=== PATIENT | female | born 1990 | race African-American/Black ===

== ENCOUNTER 2021-05-20 08:53 | Outpatient (CLI) | payer OTHER | END 2021-05-20 08:54 | disposition home or self-care (01) | LOC: CSHMRI 08:53 | PROVIDERS: ATTEND Nurse Practitioner Acute Care | DX: G43.709 Chronic migraine without aura, not intractable, without status migrainosus (principal); J32.9 Chronic sinusitis, unspecified | CPT/HCPCS: 70553 ==

== ENCOUNTER 2021-08-27 17:26 | Outpatient (CLI) | payer BC ==
[2021-08-27 18:09] LABS: Hemoglobin 12.9 g/dL (12.0-15.5); Mean Corpuscular HGB CONC 32.8 g/dL (32.0-36.0); Mean Corpuscular Hemoglobin 31.5 pg (27.0-33.0); Mean Corpuscular Volume 95.9 fl (81.6-98.3); Mean Platelet Volume 9.7 fl (7.4-10.4); Platelet Count 365 10x3/uL (150-450); RBC Distribution Width 11.9 % (11.5-14.5); White Blood Cell (WBC) Count 10.5 10x3/uL (3.5-10.5)
[2021-08-27 18:25] LABS: Anion Gap 15 mmol/L (10-20); BUN (Urea Nitrogen) 11 mg/dL (7.0-18.7); Calc. Creatinine Clearance 0 mL/min (70-130); Calcium 9.3 mg/dL (7.8-10.44); Carbon Dioxide 24 mmol/L (22-29); Chloride 101 mmol/L (98-107); Glucose 125 mg/dL (70-105); Potassium 3.9 mmol/L (3.5-5.1); Sodium 136 mmol/L (136-145)
== END 2021-08-27 17:27 | disposition home or self-care (01) ==
LOC: CSHLAB 17:26
PROVIDERS: ATTEND Orthopaedic Surgery
DX: Z01.812 Encounter for preprocedural laboratory examination (principal); S83.512A Sprain of anterior cruciate ligament of left knee, initial encounter; S83.412A Sprain of medial collateral ligament of left knee, initial encounter
CPT/HCPCS: 80048; 85027

== ENCOUNTER 2023-01-06 09:58 | Outpatient (CLI) | payer BC ==
[2023-01-06] MEDS ORDERED: Iopamidol 300 61% 100 ML VIAL FS ONE (10:23)
== END 2023-01-06 09:59 | disposition home or self-care (01) ==
LOC: CSHCT 09:58
PROVIDERS: ATTEND Physician Assistant Medical
DX: K20.0 Eosinophilic esophagitis (principal); R19.4 Change in bowel habit; K92.1 Melena; K63.9 Disease of intestine, unspecified
CPT/HCPCS: 74177; Q9967

== ENCOUNTER 2023-01-19 08:29 | Outpatient (CLI) | payer BC | END 2023-01-19 08:30 | disposition home or self-care (01) | LOC: CSHRAD 08:29 | PROVIDERS: ATTEND Physician Assistant Medical | DX: K56.1 Intussusception (principal) | CPT/HCPCS: 74250 ==

== ENCOUNTER 2023-02-21 10:06 | Day surgery (SDC) | payer BC ==
[2023-02-21] MEDS ORDERED: Lidocaine 2% PF 5 ML VIAL ONE (11:55)
[2023-02-21] MEDS ORDERED: Midazolam HCl 2 mg/2 ml Vial ONE (11:55)
[2023-02-21] MEDS ORDERED: Fentanyl 250 MCG/5 ML VIAL ONE (11:55)
[2023-02-21] MEDS ORDERED: Rocuronium Bromide 10 MG/ML (10ML VIAL) ONE (11:55)
[2023-02-21] MEDS ORDERED: PROPOFOL 40 ML ONE (11:55)
[2023-02-21] MEDS ORDERED: Glycopyrrolate 0.2 MG/ML 5 ML SYRINGE ONE (11:55)
[2023-02-21] MEDS ORDERED: Bupivacaine 0.25% HCL 30 ML VIAL ONE (12:13)
[2023-02-21] MEDS ORDERED: Lidocaine 2% 6 ML (Jelly) SYR ONE (12:13)
[2023-02-21] MEDS ORDERED: EPINEPHrine 1 MG/ML VIAL ONE (12:13)
[2023-02-21] MEDS ORDERED: Lidocaine 2% 10 ML INJ ONE (12:13)
[2023-02-21] MEDS ORDERED: CEFAZOLIN 2 GM VIAL ONE (12:30)
[2023-02-21] MEDS ORDERED: Promethazine HCl 25 MG/ML VIAL IM/IV PRN (13:30)
[2023-02-21] MEDS ORDERED: Ondansetron HCl/PF 4 MG/2 ML Vial IVP PRN (13:30)
[2023-02-21] MEDS ORDERED: Meperidine HCl/PF 25 MG/ML VIAL IV PRN (13:30)
== END 2023-02-21 14:15 | disposition home or self-care (01) ==
LOC: CSHSDC 10:06
PROVIDERS: ATTEND Surgery
PROC: 0DJD8ZZ Inspection of Lower Intestinal Tract, Via Natural or Artificial Opening Endoscopic (ICD-10-PCS; principal; 2023-02-21)
DX: K62.5 Hemorrhage of anus and rectum (principal); K58.9 Irritable bowel syndrome, unspecified; K64.8 Other hemorrhoids; Z88.8 Allergy status to other drugs, medicaments and biological substances; Z91.041 Radiographic dye allergy status
CPT/HCPCS: J0171; J2001; J2250; J2704; J3010; S0020

== ENCOUNTER 2023-12-13 12:13 | Outpatient (CLI) | payer BC ==
[2023-12-13 13:21] LABS: Hematocrit 38.8 % (34.9-44.5); Hemoglobin 13.2 g/dL (12.0-15.5); Mean Corpuscular Hemoglobin 32.5 pg (27.0-33.0); Mean Corpuscular Volume 95.6 fL (81.6-98.3); Mean Platelet Volume 10.3 fL (7.4-10.4); Platelet Count 382 10x3/uL (150-450); RBC Distribution Width 12.6 % (11.5-14.5); Red Blood Cell (RBC) Count 4.06 10x6/uL (3.90-5.03)
[2023-12-13 13:35] LABS: Anion Gap 15 mmol/L (10-20); BUN (Urea Nitrogen) 12 mg/dL (7.0-18.7); Calc. Creatinine Clearance 0 mL/min (70-130); Calcium 9.2 mg/dL (7.8-10.44); Carbon Dioxide 25 mmol/L (22-29); Chloride 103 mmol/L (98-107); Estimated GFR 94; Glucose 95 mg/dL (70-105); Potassium 4.4 mmol/L (3.5-5.1); Sodium 139 mmol/L (136-145)
[2023-12-13 13:36] LABS: BHCG - Serum Negative (NEGATIVE); Pregs Control Background? CLEAR/WHITE (CLR/WHITE); Pregs Control Bar Appear? YES (CONTROL BAR)
== END 2023-12-13 12:14 | disposition home or self-care (01) ==
LOC: CSHLAB 12:13
PROVIDERS: ATTEND Orthopaedic Surgery
DX: Z01.812 Encounter for preprocedural laboratory examination (principal); M25.512 Pain in left shoulder
CPT/HCPCS: 80048; 82306; 84703; 85027

== ENCOUNTER 2023-12-27 10:53 | Day surgery (SDC) | payer BC ==
[2023-12-18 10:15] VITALS: BMI 28.8
[2023-12-27] MEDS ORDERED: Acetaminophen 325 MG TAB ONE (11:46)
[2023-12-27] MEDS ORDERED: Ketorolac Tromethamine 30 MG (1 mL) VIAL ONE (11:46)
[2023-12-27] MEDS ORDERED: Gabapentin 300 MG CAP ONE (11:46)
[2023-12-27] MEDS ORDERED: Bupivacaine PF 0.5% 30 ML VIAL ONE (14:06)
[2023-12-27] MEDS ORDERED: Tranexamic Acid 1,000 MG/10 ML VIAL ONE (14:06)
[2023-12-27] MEDS ORDERED: EPINEPHrine 1 MG/ML VIAL ONE ×2 (14:06→15:39)
[2023-12-27] MEDS ORDERED: Lidocaine 2% PF 5 ML VIAL ONE (14:28)
[2023-12-27] MEDS ORDERED: PROPOFOL 20 ML ONE (14:29)
[2023-12-27] MEDS ORDERED: Dexamethasone 4 mg/ml Vial ONE (14:29)
[2023-12-27] MEDS ORDERED: Ondansetron PF 4 MG/2 ML Vial ONE (14:29)
[2023-12-27] MEDS ORDERED: CEFAZOLIN 2 GM VIAL ONE (14:36)
[2023-12-27] MEDS ORDERED: fentaNYL 50 mcg/mL 1 mL Vial ONE ×2 (14:49→15:23)
[2023-12-27] MEDS ORDERED: Lidocaine 1% (PF) 30 ML VIAL ONE (15:34)
[2023-12-27] MEDS ORDERED: Ropivacaine 0.5% HCl/PF (150 MG/30 ML VIAL) ONE (15:34)
[2023-12-27] MEDS ORDERED: SUGAMMADEX SODIUM 200 MG/2 ML VIAL ONE (15:43)
[2023-12-27] MEDS ORDERED: Meperidine HCl/PF 25 MG (1 mL) VIAL ONE (16:31)
== END 2023-12-27 18:00 | disposition home or self-care (01) ==
LOC: CSHSDC 10:53
PROVIDERS: ATTEND Orthopaedic Surgery
PROC: 0RBK4ZZ Excision of Left Shoulder Joint, Percutaneous Endoscopic Approach (ICD-10-PCS; principal; 2023-12-27)
PROC: 0PBB4ZZ Excision of Left Clavicle, Percutaneous Endoscopic Approach (ICD-10-PCS; principal; 2023-12-27)
DX: M75.52 Bursitis of left shoulder (principal); S42.002A Fracture of unspecified part of left clavicle, initial encounter for closed fracture; M25.812 Other specified joint disorders, left shoulder; F41.9 Anxiety disorder, unspecified; F32.A Depression, unspecified; K21.9 Gastro-esophageal reflux disease without esophagitis; G43.909 Migraine, unspecified, not intractable, without status migrainosus; M19.90 Unspecified osteoarthritis, unspecified site; Z79.899 Other long term (current) drug therapy; Z91.013 Allergy to seafood; Z91.041 Radiographic dye allergy status; Z88.8 Allergy status to other drugs, medicaments and biological substances; X58.XXXA Exposure to other specified factors, initial encounter
CPT/HCPCS: J0171; J0665; J1100; J1885; J2001; J2175; J2405; J2704; J2795; J3010